=== PATIENT | female | born 2000 | race Caucasian/White ===

== ENCOUNTER 2022-03-16 11:15 | Emergency (ER) | payer OTHER, SELFPAY ==
--- OUTSIDE RECORDS SUMMARY | 2022-03-16 11:18 | XMS REPORT | Continuity of Care Document ---
:2000 Author Organization [facility] t Address [address] [place] [address] Dr. Carl [address] [place] [id number] Care Team Providers Name Role Phone Unavailable Unavailable Unavailable Problems This patient has no known problems. Allergies, Adverse Reactions, Alerts This patient has no known allergies or adverse reactions. Medications This patient has no known medications. Procedures This patient has no known procedures. Results This patient has no known results.
--- NOTE | 2022-03-16 12:12 | ER ---
Nurse's Notes [facility] Name: Kaycee Stiles Age: 21 yrs Sex: Female : 2000 Arrival Date: 03/16/2022 Time: 11:17 Bed Waiting Private MD: Diagnosis: Presentation: 03/16 12:11 Note Registration stated pt left. vg1 ED Course: :17 Patient arrived in ED. as 11:28 [facility] Calder[facility]C [facility] snw 11:28 Dalila Dominguez MD is Attending Physician. snw 12:11 Patient's name was called from ER [facility]. No response. Unable to locate patient. Will vg1 disposition as left without being seen by a provider. Administered Medications: No medications were administered Outcome: 12:12 Patient left the ED. vg1 15:05 Patient left the ED. snw Signatures: Brandie Calderon FNP-C VIBRATION TECHNICIAN-Csnw Dorota Loja Victoria, RN RN vg1
--- NOTE | 2022-03-16 15:05 | EDPHYS ---
Physician Documentation [facility] Name: Kaycee Stiles Age: 21 yrs Sex: Female : 2000 Arrival Date: 03/16/2022 Time: Bed Waiting Private MD: ED Physician MDM: 03/16 15:05 Medical screening is not applicable. snw 03/16 11:28 Order name: Urine Dipstick-Ancillary (obtain specimen) snw 03/16 11:28 Order name: Urine Test (obtain specimen) [facility] Administered Medications: No medications were administered Disposition Summary: 03/16/22 12:12 Eloped Disposition: Before Triage vg1 Reason: unknown vg1 Signatures: Dispatcher [employer] Brandie Lese FNP-C FNP-Amita Miguel, RN RN vg1
== END 2022-03-16 15:05 | disposition left against medical advice (07) ==
LOC: ER 11:15
DX: Z02.89 Encounter for other administrative examinations (principal); Z53.21 Procedure and treatment not carried out due to patient leaving prior to being seen by health care provider